=== PATIENT | male | born 1950 | race Caucasian/White ===

== ENCOUNTER 2020-08-07 09:15 | Inpatient (IN) ==
[2020-08-01 17:10] LABS: Appearance,Urine CLEAR; Bilirubin,Urine NEG (NEG); Color,Urine YELLOW; Glucose,Urine (UA) NEGATIVE (NEG); Ketones,Urine NEG (NEG); Leukocyte Esterase,Urine NEG /uL (NEG); Nitrate,Urine NEG (NEG); Protein,Urine NEG (NEG); Specific Gravity,Urine 1.023 (1.000-1.035); Urine Blood NEG mg/dL (<0.03); Urobilinogen,Urine NEG (NEG)
[2020-08-01 20:30] LABS: Prothrombin Time 14.1 sec (11.9-14.5)
[2020-08-01 22:25] LABS: Basophils # (Auto) 0.05 K/mcL (0.00-0.30); Basophils % (Auto) 0.5 % (0.0-2.0); Eosinophils # (Auto) 0.27 K/mcL (0.00-0.70); Eosinophils % (Auto) 2.8 % (0.0-7.0); Granulocytes % (Auto) 72.1 % (38.0-78.0); Hematocrit 45.6 % (40.1-51.0); Hemoglobin 14.6 g/dL (13.7-17.5); Lymphocytes # (Auto) 1.67 K/mcL (1.50-4.80); Lymphocytes % (Auto) 17.4 % (15.5-49.0); Mean Cell Volume 94.8 fL (80.0-100.0); Mean Platelet Volume 10.6 fL (7.4-10.4); Monocytes # (Auto) 0.69 K/mcL (0.10-0.90); Monocytes % (Auto) 7.2 % (1.0-12.0); Platelet Count 301 K/mcL (140-440); RBC 4.81 M/mcL (4.63-6.08); Red Cell Distribution Width 12.7 % (11.5-14.5); WBC 9.6 K/mcL (4.50-11.00)
[2020-08-01 22:42] LABS: Blood Urea Nitrogen 32 mg/dl (8-23); Calcium 10.5 mg/dl (8.6-10.4); Carbon Dioxide 23 mmol/L (22-30); Chloride 104 mmol/L (96-108); Glomerular Filtration Rate 51; Glucose 146 mg/dL (70-105)
[2020-08-02 00:37] LABS: Estimated Average Glucose(eAG) 131 mg/dL; Hemoglobin A1C 6.2 % HGB (4.0-6.0)
[~2020-08-07 09:15] MED LIST: CELECOXIB 200 MG CAPSULE PO SCH; IPRATROPIUM/ALBUTEROL 3 ML AMPUL.NEB NEB PRN; PREGABALIN 75 MG CAPSULE PO SCH; SCOPOLAMINE 1 PATCH PATCH TOPICAL ONE; ceFAZolin 2 GM in DEXTROSE 5% IN WATER 50 ML IV SCH; oxyCODONE 10 MG TAB.ER.12H PO SCH
[2020-08-07] MEDS ORDERED: KETAMINE 100 MG/ML ML ONE (10:45)
[2020-08-07] MEDS ORDERED: SUCCINYLCHOLINE 20 MG/ML ML IV ONE (10:45)
[2020-08-07] MEDS ORDERED: PROPOFOL 200 MG/20 ML VIAL IV ONE (10:45)
[2020-08-07] MEDS ORDERED: DEXAMETHASONE 10 MG/ML VIAL ONE (10:45)
[2020-08-07] MEDS ORDERED: ePHEDrine 50 MG/ML AMPUL IV ONE (10:45)
[2020-08-07] MEDS ORDERED: ROPIVACAINE HCL/PF 30 ML VIAL IJ ONE (10:45)
[2020-08-07] MEDS ORDERED: LIDOCAINE HCL/PF 100 MG/5 ML SYRINGE IV ONE (10:45)
[2020-08-07] MEDS ORDERED: TRANEXAMIC ACID 1,000 MG/10 ML VIAL IV ONE (10:45)
[2020-08-07] MEDS ORDERED: ONDANSETRON 4 MG/2 ML VIAL ONE (10:45)
[2020-08-07] MEDS ORDERED: PHENYLEPHRINE 10 MG/ML VIAL ONE (10:45)
[2020-08-07] MEDS ORDERED: GLYCOPYRROLATE 0.2 MG/ML VIAL IV ONE (10:45)
[2020-08-07] MEDS ORDERED: fentaNYL 250 MCG/5 ML VIAL IV ONE (10:45)
[2020-08-07] MEDS ORDERED: GENTAMICIN SULFATE 800 MG/20 ML VIAL IR ONE (11:16)
[2020-08-07] MEDS ORDERED: MEPERIDINE 25 MG/ML SYRINGE IV PRN (11:42)
[2020-08-07] MEDS ORDERED: ONDANSETRON 4 MG/2 ML VIAL IV PRN ×2 (11:42→12:17)
[2020-08-07] MEDS ORDERED: METOPROLOL TARTRATE 5 MG/5 ML VIAL IV PRN (11:42)
[2020-08-07] MEDS ORDERED: ACETAMINOPHEN 1,000 MG/100 ML BOTTLE IV ONE (11:42)
[2020-08-07] MEDS ORDERED: PROMETHAZINE 25 MG/ML VIAL IV PRN (11:42)
[2020-08-07] MEDS ORDERED: ATROPINE SULFATE 0.4 MG/ML VIAL IV PRN (11:42)
[2020-08-07] MEDS ORDERED: METHOCARBAMOL 1,000 MG/10 ML VIAL IV PRN (11:42)
[2020-08-07] MEDS ORDERED: diphenhydrAMINE 50 MG/ML VIAL IV PRN (11:42)
[2020-08-07] MEDS ORDERED: NALOXONE HCL 0.4 MG/ML VIAL IV PRN (11:42)
[2020-08-07] MEDS ORDERED: ePHEDrine 50 MG/ML AMPUL IV PRN (11:42)
[2020-08-07] MEDS ORDERED: IPRATROPIUM/ALBUTEROL 3 ML AMPUL.NEB NEB PRN (11:42)
[2020-08-07] MEDS ORDERED: HYDROmorphone 0.5 MG/0.5 ML SYRINGE IV PRN (11:42)
--- NOTE | 2020-08-07 12:16 | General Surgery Procedure Note ---
Date of procedure: Note initiated : 08/07/20 at 12:15 pm Service Date, if different from initiated Date: [] Pre-op diagnosis: right shoulder osteoarthritis, rtc tear, biceps tendonitis Post-op diagnosis: same Procedure: right reverse total shoulder arthroplasty, biceps reinsertion Findings: oa, rtc tear Grafts/Implants: depuy Anesthesia: GERMANIAA Surgeon: Horacoi Bull Urban Design Consultant: Martin Odonnell Estimated blood loss: 150 Pathology: none sent Condition: stable Disposition: PACU
[2020-08-07] MEDS ORDERED: morphine 4 MG/ML VIAL IV PRN (12:17)
[2020-08-07] MEDS ORDERED: TRANEXAMIC ACID 1,000 MG/10 ML VIAL IV SCH (12:17)
[2020-08-07] MEDS ORDERED: BENZOCAINE/MENTHOL 1 LOZENGE PO PRN (12:17)
[2020-08-07] MEDS ORDERED: KETOROLAC 15 MG/ML VIAL IV PRN (12:17)
[2020-08-07] MEDS ORDERED: MAGNESIUM HYDROXIDE 30 ML ORAL.SUSP PO PRN (12:17)
[2020-08-07] MEDS ORDERED: METHOCARBAMOL 750 MG TABLET PO PRN (12:17)
[2020-08-07] MEDS ORDERED: ONDANSETRON 4 MG ODT TABLET SL PRN (12:17)
[2020-08-07] MEDS ORDERED: POLYETHYLENE GLYCOL 3350 17 GM PACKET PO PRN (12:17)
[2020-08-07] MEDS ORDERED: BISACODYL 10 MG SUPP.RECT PR PRN (12:17)
[2020-08-07] MEDS ORDERED: FLEETS ADULT ENEMA PR PRN (12:17)
--- NOTE | 2020-08-07 12:17 | Discharge Plan ---
Discharge Instructions - [facility] Patient Instructions Total Shoulder Protocol: Leave immobilizer in place except for bathing and ROM. Abduction pillow. Continue to wear sling until seen by physician. Codman Pendulum : These exercises use momentum produced by your body to move your shoulder joint. Bend your knees and shift your weight to your front leg, then back, allowing your arm to swing in the same directions. Using the same technique, alternately shift your weight between your right and left legs, allowing your arm to swing from side to side. These exercises are also performed in counterclockwise and clockwise circular motions. Typically these exercises are performed several times per day, for a set number repetitions or minutes, such as 20 times in a row or 5 minutes at a time. Discharge Plan Patient/Caregiver Discharge Instructions Activity: non-weight bearing Diet: Regular Diet Prescriptions: No Action lisinopril 40 mg tablet 40 mg PO QDAY Qty: 90 RF: 0 allopurinol 100 mg tablet 150 mg PO QDAY RF: 0 omeprazole 20 mg capsule,delayed release(DR/EC) 20 mg PO QDAY RF: 0 hydrochlorothiazide 25 mg tablet 25 mg PO QDAY RF: 0 zolpidem 10 mg tablet 10 mg PO HS RF: 0 ibuprofen 200 mg tablet 400 mg PO BID PRN (Reason: pain) RF: 0 multivitamin Tablet 1 tab PO QDAY RF: 0 metformin 500 mg Tablet 1,000 mg PO BIDCC RF: 0 cholecalciferol (vitamin D3) [Vitamin D3] 25 mcg (1,000 unit) Tablet 25 mcg PO QDAY RF: 0 latanoprost (PF) 0.005 % Drops 1 drp ophthalmic (eye) QPM RF: 0 turmeric 400 mg Capsule 400 mg PO DAILY RF: 0 omega 2-nzn-kis-fish oil [Fish Oil] 1,000 mg (120 mg-180 mg) Capsule 1 cap PO QDAY RF: 0 magnesium 250 mg tablet 250 mg PO QDAY RF: 0 Follow Up Plan Follow up with: Horacio Bull MD [Physician] - 08/22/20 9:40 am Patient Disposition: Home, Self-Care Rehab Potential: Good I certify that the patient requires SNF services: No Overall status at discharge: patient is progressing back to baseline Discharge Orders: Discharge Order (Routine); Ordered 08/08/20 Ordered By: Horacio Bull
[2020-08-07] MEDS ORDERED: DEXTROSE 31 GM ORAL.SUSP PO PRN (12:20)
[2020-08-07] MEDS ORDERED: DEXTROSE 50% 50 ML VIAL IV PRN (12:20)
[2020-08-07] MEDS: LACTATED RINGERS 1,000 ML IV SCH ×4 (12:55→21:17)
--- NOTE | 2020-08-07 13:00 | Operative Note ---
DATE OF OPERATION: 08/07/2020 PREOPERATIVE DIAGNOSES: 1. Right shoulder advanced bony osteoarthritis. 2. Right shoulder rotator cuff tear. 3. Right shoulder proximal biceps tendinitis. POSTOPERATIVE DIAGNOSES: 1. Right shoulder advanced bony osteoarthritis. 2. Right shoulder rotator cuff tear. 3. Right shoulder proximal biceps tendinitis. PROCEDURE PERFORMED: 1. Right reverse total shoulder arthroplasty. 2. Right shoulder soft tissue biceps tenodesis. SURGEON: Hua Bull M.D. DIET CONSULTANT SURGEON: Martin Odonnell PA-C. The PA's assistance was required for the safe and efficient completion of the entire case. This provider's expertise and technical skill were required throughout the case. The PA assisted with preoperative coordination, intraoperative retraction, wound closure, dressing and splint application, as well as postoperative documentation and care coordination. ANESTHESIA: General. ESTIMATED BLOOD LOSS: 150 mL. COMPLICATIONS: None noted. SPECIMENS REMOVED: None. DRAINS: None. IMPLANTS: 1. DePuy Delta XTEND cementless metaglene [place]-coated. 2. DePuy Delta XTEND locking metaglene screw 4.5 x 30 (1), 4.5 x 24 (2), and nonlocking metaglene screw 4.5 x 18 (1). 3. DePuy Delta XTEND lateralized glenosphere +2, 38 mm standard. 4. DePuy Delta XTEND modular humeral stem size 14, [place]-coated, cementless. 5. DePuy Delta XTEND modular eccentric epiphysis size 2, right, [place]-coated, cementless. 6. DePuy Delta XTEND humeral polyethylene cup standard 38, +3. INDICATIONS: The patient has had a longstanding history of worsening pain in the shoulder that has failed conservative treatment. Radiographs have confirmed advanced degenerative joint disease and a failed rotator cuff. After a long discussion about treatment options, the patient elected to proceed with a reverse total shoulder arthroplasty. The risks and benefits were discussed with the patient in detail including, but not limited to, the risks of anesthesia, problems with the heart or lungs related to anesthesia, infection, compromise or injury to the nerves and blood vessels, deep venous thrombosis, pulmonary embolism, pneumonia, continued pain after surgery, worsening pain or symptoms after surgery, swelling, loss of motion, instability, fracture, arm length discrepancy, and need for repeat surgery. DESCRIPTION OF PROCEDURE: The patient was seen in the preanesthesia waiting room where all questions were answered and the correct side and site were identified and marked. The patient was transferred to the operating room and administered the anesthetic and given preoperative antibiotics. A timeout was then called. The patient was placed in the modified beach chair position with all prominences well padded. The extremity was prepped and draped from the fingers up to the neck. A standard deltopectoral skin incision was created. Dissection was carried down to the deltopectoral groove and the cephalic vein was isolated medially and retracted laterally with the deltoid. Retractors were placed and the coracobrachialis was split up to the coracoacromial ligament allowing retraction of the conjoined tendon. We split the subscapularis 1 cm medial to the bicipital groove and extended the split into the rotator interval. This was tagged for later repair. The supraspinatus and infraspinatus had been previously torn and retracted. The biceps was cut and a soft tissue tenodesis was performed into the anterior shoulder with #2 FiberWire. A capsular release was performed in a posterior subperiosteal direction along the humerus. The humeral head was then dislocated. We established intramedullary access and hand reamed up to get good cortical chatter with the [employer] Delta XTEND reverse total shoulder instrumentation. We then used the intramedullary guide and set to about 5 degrees of retroversion. The proximal humerus cut was performed and osteophytes were removed. A metal protector plate was then placed. Attention was then turned to the glenoid. Retractors were placed for optimal visualization and the labrum was excised in its entirety. A centralizing Steinmann pin was placed just into the posterior inferior quadrant in a standard fashion. We reamed over the pin to remove all the cartilage and get to a good base for the prosthesis. The drill was then placed over for the central peg. A cementless Metaglene was then impacted into place. We then drilled, measured, and placed the four screws starting inferior, then superior, then anterior, and finally posterior. The superior locking screw was lined up at the base of the coracoid process. We then impacted the head onto the Metaglene and tightened down in a standard fashion. Attention was then turned back to the humerus. Proximal reaming was performed off the intramedullary guide into the humeral head, using the eccentric guide to allow best coverage. We again set version and broached up to a stable implant. Trials were placed and good tension, motion, and stability were obtained at this point. Trials were removed and the final press fit femoral prosthesis was impacted into place with measured version. The final polyethylene was placed and the shoulder was reduced and again checked for motion, tension, and stability. We irrigated with 3 liters of antibiotic saline and closed the subscapularis with # 2 FiberWire. We irrigated again and closed the deltopectoral interval with several # 0 Vicryl figure of eight sutures. The subcutaneous layer was closed with 2-0 Vicryl and the skin was closed with Dermabond. A sterile pressure dressing was applied and the patient was placed into an abduction sling. All needle and sponge counts were correct. The patient was transferred to the recovery room in stable condition. [id number]:alfred Job ID: [id number] Doc ID: [id number] Hua Bull MD
[2020-08-07] MEDS: fentaNYL 100 MCG/2 ML VIAL IV PRN ×2 (13:05→13:11)
[2020-08-07] MEDS: 0.9 % SODIUM CHLORIDE 10 ML SYRINGE IV SCH ×2 (13:59→21:17)
--- NOTE | 2020-08-07 14:09 | XRay Report ---
CLINICAL INFORMATION: Post-OP Total Shoulder COMPARISON: None. FINDINGS: Total shoulder prostheses is anatomically aligned. No osseous abnormality. Soft tissue swelling and gas seen as expected IMPRESSION: Shoulder prostheses in anatomic alignment Interpreted and Authenticated by: Horacio Malin 08/07/20
[2020-08-07] MEDS: INSULIN LISPRO 1 UNIT/0.01 ML UNIT SQ SCH ×2 (17:47→21:27)
[2020-08-07] MEDS: metFORMIN 500 MG TABLET PO SCH (17:48)
[2020-08-07] MEDS: ceFAZolin 1 GM VIAL IV SCH (20:04)
[2020-08-07] MEDS ORDERED: LATANOPROST OPHTHALMIC SCH (21:00)
[2020-08-07] MEDS ORDERED: SENNOSIDES 1 TABLET PO SCH (21:00)
[2020-08-07] MEDS: HYDROcodone/APAP 10/325MG TABLET PO PRN (21:04)
[2020-08-07] MEDS: DOCUSATE SODIUM 100 MG CAPSULE PO SCH (21:04)
[2020-08-08] MEDS: ceFAZolin 1 GM VIAL IV SCH (03:23)
[2020-08-08 06:52] LABS: Hematocrit 38.7 % (40.1-51.0)
[2020-08-08] MEDS: LACTATED RINGERS 1,000 ML IV SCH ×2 (07:13→11:50)
[2020-08-08] MEDS: 0.9 % SODIUM CHLORIDE 10 ML SYRINGE IV SCH (07:14)
[2020-08-08] MEDS: INSULIN LISPRO 1 UNIT/0.01 ML UNIT SQ SCH ×2 (07:22→11:48)
[2020-08-08] MEDS: DOCUSATE SODIUM 100 MG CAPSULE PO SCH (07:30)
[2020-08-08] MEDS ORDERED: OMEPRAZOLE 20 MG CAPSULE PO SCH (07:30)
[2020-08-08] MEDS: metFORMIN 500 MG TABLET PO SCH (07:31)
--- NOTE | 2020-08-08 07:35 | Orthopedic Progress Note ---
SUBJECTIVE Subjective Patient information: Note initiated : 08/08/20 at 7:32 am Service Date, if different from initiated Date: [] Patient: Henry Newton 70 y/o M admitted on 08/07/20 for Right Reverse Total Shoulder Arthroplasty and Open. Chief Complaint: [s/p right reverse total shoulder arthroplasty] Constitutional Vitals: Vital Signs Temp Pulse Resp BP Pulse Ox 97.6 F 70 12 91/56 94 08/08/20 02:55 08/08/20 02:55 08/08/20 02:55 08/08/20 02:55 08/08/20 02:55 Period Temp Pulse Resp BP Sys/Shankar Pulse Ox Last 24 Hr 96.2 F-97.8 F 58-100 11-18 91-126/56-82 85-100 Intake and Output 08/07/20 08/08/20 08/08/20 21:59 05:59 13:59 Intake Total 1121 100 Output Total 260 400 300 Balance 861 -300 -300 Weight 220 lb 12.8 oz Intake & Output: Intake & Output 08/07/20 08/08/20 08/08/20 21:59 05:59 13:59 Intake Total 1121 100 Output Total 260 400 300 Balance 861 -300 -300 Weight 220 lb 12.8 oz Intake: IV 921 Lactated Ringers 1,000 ml @ 125 921 mls/hr IV .Q8H [facility] Rx#: [id number] Oral 200 100 Output: Void Amount 260 400 300 Other: Meal Dinner Percent of Meal Consumed 50% Feeding Ability Assist with Tray Set Up Urine Appearance Clear Clear Clear Urine Color Bright Yellow Bright Yellow Pale Urine Odor Normal Normal OBJ DATA Labs CBC & Chem 7: 08/08/20 05:35 08/01/20 15:29 Labs: Abnormal Lab Results 08/08/20 05:35 Hgb 13.0 L Hct 38.7 L Meds: Medications Hydrocodone Bitart/Acetaminophen (Tower 10/325mg) 0 tab PO Q4HP PRN; Protocol PRN Reason: Per Pain Protocol Last Admin: 08/07/20 21:04 Dose: 1 tab Documented by: Bisacodyl (Dulcolax) 10 mg MT Q2-3DAYS PRN PRN Reason: Constipation Dextrose (Dextrose 50%) 0 ml IV UD PRN PRN Reason: Hypoglycemia Diagnostic Test (Pha) (Accu-Chek) 1 each FS ACHS [facility] Last Admin: 08/08/20 07:20 Dose: 1 each Documented by: Docusate Sodium (Colace) 100 mg PO BID [facility] Last Admin: 08/08/20 07:30 Dose: 100 mg Documented by: Glucose (Insta-Glucose) 15 gm PO PRN PRN PRN Reason: Hypoglycemia Hydrochlorothiazide (Oretic) 25 mg PO QDAY [facility] Last Admin: 08/08/20 07:30 Dose: 25 mg Documented by: Lactated Ringer's (Lactated Ringers) 1,000 mls @ 125 mls/hr IV .Q8H [facility] Last Admin: 08/08/20 07:13 Dose: Not Given Documented by: Insulin Human Lispro (Humalog) 0 unit SQ [facility]; Protocol Last Admin: 08/08/20 07:22 Dose: Not Given Documented by: Ketorolac Tromethamine (Toradol) 15 mg IV Q6HP PRN; Protocol PRN Reason: Per Pain Protocol Stop: 08/09/20 12:18 Lisinopril (Zestril) 40 mg PO DAILY [facility] Last Admin: 08/08/20 07:31 Dose: 40 mg Documented by: Magnesium Hydroxide (Milk Of Magnesia) 30 ml PO BIDP PRN PRN Reason: Constipation Magnesium Oxide (Magnesium Oxide) 400 mg PO DAILY [facility] Last Admin: 08/08/20 07:24 Dose: Not Given Documented by: Metformin HCl (Glucophage) 1,000 mg PO BIDCC [facility] Last Admin: 08/08/20 07:31 Dose: 1,000 mg Documented by: Methocarbamol (Robaxin) 750 mg PO Q6HP PRN PRN Reason: Muscle Spasm Morphine Sulfate (Morphine) 0 mg IV Q1HP PRN; Protocol PRN Reason: Per Pain Protocol Non-Formulary Medication (Latanoprost (Pf)) 1 drp OPHTHALMIC QPM [facility] Last Admin: 08/07/20 21:07 Dose: 1 drp Documented by: Omeprazole (Prilosec) 20 mg PO ACB [facility] Last Admin: 08/08/20 07:30 Dose: 20 mg Documented by: Ondansetron HCl (Zofran) 4 mg IV Q4HP PRN; Protocol PRN Reason: Nausea And Vomiting Ondansetron HCl (Zofran Odt) 4 mg SL Q4HP PRN; Protocol PRN Reason: Nausea And Vomiting Last Admin: 08/07/20 16:22 Dose: 4 mg Documented by: Polyethylene Glycol (Miralax) 17 gm PO DAILYP PRN PRN Reason: Constipation Senna (Senokot) 2 tab PO HS [facility] Last Admin: 08/07/20 21:04 Dose: 2 tab Documented by: Sodium Biphosphate/Sodium Phosphate (Fleets Adult) 1 dose MT Q3-4DAYS PRN PRN Reason: Constipation Sodium Chloride (Saline Flush) 10 ml IV Q8 [facility] Last Admin: 08/08/20 07:14 Dose: Not Given Documented by: Throat Lozenges (Cepacol) 1 lozenge PO PRN PRN PRN Reason: Sore Throat A/P Narrative A/P Narrative: pt seen and examined this am, awake alert and conversant, eager for discharge to home. has some expected post operative pain but feels it is well managed and states he may not have to take his hydrocodone. dressing at right upper extremity clean dry and intact, right arm warm , well perfused and neuro intact. 10 point review of systems performed and is negative. expected discharge to home today. Time Spent With Patient Time: Total time spent is greater than 50% in coordination of care (as documented) at patient's floor/unit and/or counseling patient:
[2020-08-08] MEDS ORDERED: MAGNESIUM OXIDE 400 MG TABLET PO SCH (09:00)
[2020-08-08] MEDS ORDERED: HYDROCHLOROTHIAZIDE 25 MG TABLET PO SCH (09:00)
[2020-08-08] MEDS ORDERED: LISINOPRIL 20 MG TABLET PO SCH (09:00)
[2020-08-08] MEDS: HYDROcodone/APAP 10/325MG TABLET PO PRN (10:56)
== END 2020-08-08 12:45 | disposition home or self-care (01) | DRG 483 ==
LOC: MEDSUR 09:15
PROVIDERS: ADMIT Orthopaedic Surgery Sports Medicine; ATTEND Orthopaedic Surgery Sports Medicine